=== PATIENT | male | born 1985 | race Caucasian/White ===

== ENCOUNTER 2017-12-06 19:18 | Emergency (ER) | payer OTHER ==
[2017-12-06 19:28] VITALS: BP 157/87
[2017-12-06] MEDS ORDERED: LIDOCAINE 2% 10 ML MDV SUBQ STA (20:16)
[2017-12-06] MEDS ORDERED: BACITRACIN OINT TOP STA (20:42)
--- NOTE | 2017-12-06 20:45 | ED Physician Documentation ---
PD HPI LOWER EXT INJURY - Stated complaint Stated Complaint: LT BIG TOE PX - Chief complaint Chief Complaint: Trauma Ext - History obtained from History obtained from: Patient - History of Present Illness PD HPI LOW EXT INJURY LOCATION: Left, Toe (great toe toenail) Type of injury: Blunt / blow Where injury occurred: Home Timing - onset: How many hours ago (1) Timing - duration: Hours (1) Timing - details: Abrupt onset Pain level max: 7 Pain level now: 3 Improved by: Rest Worsened by: Moving, Palpating Associated symptoms: No: Weakness, Numbness, Tingling, Swelling Contributing factors: No: Anticoagulated Recently seen: Not recently seen - Additional information Additional information: Patient stubbed his left great toe in his garage and avulsed his left toenail. Here to have the remainder of the toenail removed. Review of Systems Neurologic: denies: Focal weakness, Numbness PD PAST MEDICAL HISTORY - Past Medical History Past Medical History: No - Past Surgical History Past Surgical History: No - Present Medications Home Medications: Ambulatory Orders Medication Instructions Recorded Confirmed No Known Home Medications [No 12/06/17 12/06/17 Known Home Medications] - Allergies Allergies/Adverse Reactions: Allergies Allergy/AdvReac Type Severity Reaction Status Date / Time amoxicillin Allergy Rash Verified 12/06/17 19:28 Penicillins Allergy Hives Verified 12/06/17 19:29 PD ED PE NORMAL - Vitals Vital signs reviewed: Yes - General General: Alert and oriented X 3 - Derm Derm: Warm and dry - Extremities Extremities: Other (Left foot - Great toenail is approximately 90% avulsed. No active bleeding. No laceration. Neurovascularly intact) - Neuro Neuro: Alert and oriented X 3 Results - Vitals Vitals: Vital Signs - 24 hr 12/06/17 19:25 Temperature 36.5 C Heart Rate 96 Respiratory 15 Rate Blood Pressure 157/87 H O2 Saturation 97 Oxygen O2 Source Room air Procedures - General procedure General procedure: Left great toenail removal - 2% lidocaine was used as a digital block for the great toe. The toenail was then removed with straight forceps. Patient tolerated well. No bleeding. Bacitracin and Xeroform gauze were then applied. Neurovascularly intact. Patient refuses anything placed under the nail fold. Tolerated well PD MEDICAL DECISION MAKING - ED course Complexity details: considered differential, d/w patient ED course: Patient is a 32-year-old male with a left great toenail avulsion. This was removed in the emergency department. Tolerated well. Warnings of infection and instructions on wound care given at bedside. Patient counseled regarding signs and symptoms for which I believe and urgent re-evaluation would be necessary. Patient with good understanding of and agreement to plan and is comfortable going home at this time This document was made in part using voice recognition software. While efforts are made to proofread this document, sound alike and grammatical errors may occur. Departure - Departure Disposition: 01 Home, Self Care Clinical Impression: Avulsed toenail Qualifiers: Encounter type: initial encounter Qualified Code(s): S91.209A - Unspecified open wound of unspecified toe(s) with damage to nail, initial encounter Condition: Good Instructions: ED Avulsion Nail Complete Follow-Up: your,doctor in 1 week [Other] Comments: Keep the wound clean. Return for redness, swelling or drainage from the wound. Discharge Date/Time: 12/06/17 21:00
[2017-12-06] MEDS ORDERED: BACITRACIN OINT TOP ONE (20:52)
== END 2017-12-06 21:00 | disposition home or self-care (01) ==
LOC: ED 19:18
DX: S91.212A Laceration without foreign body of left great toe with damage to nail, initial encounter (principal); W22.09XA Striking against other stationary object, initial encounter; Y92.015 Private garage of single-family (private) house as the place of occurrence of the external cause
CPT/HCPCS: 11730; 99283; A9270

== ENCOUNTER 2018-02-06 12:03 | Emergency (ER) | payer OTHER ==
[2018-02-06 12:41] LABS: BILIRUBIN,URINE NEGATIVE (NEGATIVE); GLUCOSE, URINE (UA) NEGATIVE (NEGATIVE); KETONES,URINE (UA) NEGATIVE (NEGATIVE); LEUKOCYTE ESTERASE, URINE NEGATIVE (NEGATIVE); NITRITE,URINE NEGATIVE (NEGATIVE); OCCULT BLOOD,URINE LARGE (NEGATIVE); PROTEIN,URINE NEGATIVE (NEGATIVE); UROBILINOGEN,URINE 0.2 (NORMAL) E.U./dL (NORMAL)
[2018-02-06 12:52] LABS: CLARITY,URINE HAZY (CLEAR)
[2018-02-06 12:53] LABS: BACTERIA,URINE None Seen /HPF (None Seen); RBC,URINE TNTC /HPF (0-5); SQUAMOUS EPITHELIAL CELL,UR NONE SEEN (<= Few)
--- NOTE | 2018-02-06 12:56 | ED Physician Documentation ---
PD HPI ABD PAIN - Stated complaint Stated Complaint: AB PX - Chief complaint Chief Complaint: UTI - History obtained from History obtained from: Patient - History of Present Illness Timing - onset: Today Timing - duration: Hours Timing - details: Abrupt onset, Still present Quality: Sharp, Pain Location: Suprapubic Improved by: Other (nothing) Worsened by: Other (nothing) Associated symptoms: Hematuria. No: Fever, Nausea, Vomiting, Hematemesis, Diarrhea, Constipation, Dysuria, Loss of appetite Similar symptoms before: Has not had sx before Recently seen: Not recently seen - Additional information Additional information: Recently healthy 33-year-old male noted today some lower abdominal cramping and dark colored urine. He drink extra fluids noted the continued dark color of his urine and he is being calm concerned that this may be blood in his urine. He denies any excessive physical activity in the last 2 days and has not been ill. He has not had this happen to him previously and he denies any radiation of the pain into the flank. Review of Systems Constitutional: denies: Fever Eyes: denies: Decreased vision Ears: denies: Ear pain Nose: denies: Congestion Throat: denies: Sore throat Cardiac: denies: Chest pain / pressure, Palpitations Respiratory: denies: Dyspnea, Cough GI: reports: Abdominal Pain. denies: Nausea, Vomiting, Constipation, Diarrhea : reports: Hematuria. denies: Dysuria, Frequency Skin: denies: Rash Musculoskeletal: denies: Neck pain, Back pain, Extremity pain PD PAST MEDICAL HISTORY - Past Medical History Past Medical History: No - Past Surgical History Past Surgical History: No - Present Medications Home Medications: Ambulatory Orders Medication Instructions Recorded Confirmed Tramadol HCl 50 - 100 mg PO Q6HR PRN #15 tablet 02/06/18 - Allergies Allergies/Adverse Reactions: Allergies Allergy/AdvReac Type Severity Reaction Status Date / Time amoxicillin Allergy Rash Verified 12/06/17 19:28 Penicillins Allergy Hives Verified 12/06/17 19:29 - Social History Does the pt smoke?: No Smoking Status: Never smoker Does the pt drink ETOH?: No Does the pt have substance abuse?: No - Immunizations Immunizations are current?: Yes - POLST Patient has POLST: No PD ED PE NORMAL - Vitals Vital signs reviewed: Yes (hypertensive ) - General General: Alert and oriented X 3, No acute distress, Well developed/nourished - HEENT HEENT: Atraumatic, PERRL, EOMI - Neck Neck: Supple, no meningeal sign - Cardiac Cardiac: RRR, No murmur - Respiratory Respiratory: No respiratory distress, Clear bilaterally - Abdomen Abdomen: Soft, Non tender, Other (palpation of the RLQ confrims the location of the pain but does not make pain worse. ) - Back Back: No CVA TTP, No spinal TTP - Derm Derm: Normal color, Warm and dry, No rash - Extremities Extremities: No deformity, No edema - Neuro Neuro: Alert and oriented X 3, No motor deficit, No sensory deficit, Normal speech Eye Opening: Spontaneous Motor: Obeys Commands Verbal: Oriented GCS Score: 15 - Psych Psych: Normal mood, Normal affect Results - Vitals Vitals: Vital Signs - 24 hr 02/06/18 12:18 Temperature 36.5 C Heart Rate 86 Respiratory 16 Rate Blood Pressure 143/101 H O2 Saturation 100 Oxygen O2 Source Room air - Labs Labs: Laboratory Tests 02/06/18 12:37 Urine Color ORANGE Urine Clarity HAZY Urine pH 6.0 Ur Specific [place] <=1.005 Urine Protein NEGATIVE Urine Glucose (UA) NEGATIVE Urine Ketones NEGATIVE Urine Occult Blood LARGE H Urine Nitrite NEGATIVE Urine Bilirubin NEGATIVE Urine Urobilinogen 0.2 (NORMAL) Ur Leukocyte Esterase NEGATIVE Urine RBC TNTC H Urine WBC 6-10 H Ur Squamous Epith Cells NONE SEEN Urine Bacteria None Seen Ur Microscopic Review INDICATED Urine Culture Comments INDICATED Procedures - Bedside sono Bedside sono by EMP: With use of bedside ultrasound the right kidney is imaged and it is sonographically nontender and there is evidence of mild hydronephrosis. Examination of the left kidney is without evidence of hydronephrosis and it is also sonographically nontender. PD MEDICAL DECISION MAKING - ED course Complexity details: reviewed results, re-evaluated patient, considered differential, d/w patient ED course: 33-year-old male with dark-colored urine and lower abdominal pain today appears to have a kidney stone by history and bedside ultrasound exam. I discussed with the patient the indirect evidence for the kidney stone and use of CT scan for confirmation. I discussed with the patient the usual course of pain associated with the kidney stone and he would like to wait the next week to decide whether a scan is indicated. I have encouraged the patient. - Sepsis Event Vital Signs: Vital Signs - 24 hr 02/06/18 12:18 Temperature 36.5 C Heart Rate 86 Respiratory 16 Rate Blood Pressure 143/101 H O2 Saturation 100 Oxygen O2 Source Room air Departure - Departure Disposition: 01 Home, Self Care Clinical Impression: Ureterolithiasis Condition: Stable Instructions: ED Stone Renal W Colic Follow-Up: BECKA MEDRANO DO [Primary Care Provider] - Prescriptions: Tramadol HCl 50 - 100 mg PO Q6HR PRN #15 tablet PRN Reason: Pain Comments: Today we have found blood in the urine and evidence of blockage of the right ureter on ultrasound. These findings are consistent with a kidney stone. The course is expected to be benign and we expect the stone to pass in the next 2 days. If you have worsening or intolerance of the pain or the pain lasts longer than 5 days return to the ED for scanning. If you are not able to eat or develop a fever return here as these are not symptoms of a kidney stone and may indicate a more urgent problem like appendicitis.
[2018-02-06 13:24] VITALS: BP 135/88
== END 2018-02-06 13:24 | disposition home or self-care (01) ==
LOC: ED 12:03
DX: N20.1 Calculus of ureter (principal)
CPT/HCPCS: 81001; 81003; 87086; 99283

== ENCOUNTER 2018-02-08 16:11 | Emergency (ER) | payer OTHER ==
[2018-02-08] MEDS ORDERED: SODIUM CHLORIDE 0.9% 1,000 ML IV ONE (16:45)
[2018-02-08] MEDS ORDERED: KETOROLAC 60 MG/2 ML VIAL IVP STA (16:45)
--- NOTE | 2018-02-08 16:46 | ED Physician Documentation ---
PD HPI ABD PAIN - Stated complaint Stated Complaint: MALE /BACK PX - Chief complaint Chief Complaint: Abd Pain - History obtained from History obtained from: Patient - History of Present Illness Timing - onset: Enter time (1000), Today Timing - duration: Hours Timing - details: Abrupt onset, Still present Pain level max: 6 Pain level now: 6 Quality: Cramping, Sharp, Pain Location: RUQ Radiation: Right flank Improved by: Other (nothing) Worsened by: Other (nothing) Associated symptoms: Hematuria. No: Fever, Nausea, Vomiting, Hematemesis, Diarrhea, Constipation, Melena, Hematochezia, Dysuria, Chest pain Similar symptoms before: Diagnosis (kidney stone) Recently seen: Emergency Dept - Additional information Additional information: 33-year-old male was seen here in the department 2 days ago with a kidney stone on the right side diagnosed with bedside ultrasound showing hydronephrosis. At that time we decided not to do CT examination of the abdomen pelvis and the patient had decent pain relief with the use of Toradol. Today he was at home and he had been comfortable throughout the night and he began to develop some significant pain in the right side and sensation that he needed to void. Pain is become intolerable at a 6 out of 10 and he is come to the emergency department now for evaluation. Review of Systems Constitutional: denies: Fever Eyes: denies: Decreased vision Ears: denies: Ear pain Nose: denies: Congestion Throat: denies: Dental pain / toothache, Sore throat Cardiac: denies: Chest pain / pressure, Palpitations Respiratory: denies: Dyspnea, Cough GI: reports: Abdominal Pain, Nausea. denies: Vomiting, Constipation, Diarrhea : reports: Unable to Void, Hematuria. denies: Dysuria, Frequency Skin: denies: Rash Musculoskeletal: reports: Back pain. denies: Neck pain, Extremity pain PD PAST MEDICAL HISTORY - Past Surgical History Past Surgical History: No - Present Medications Home Medications: Ambulatory Orders Medication Instructions Recorded Confirmed Tramadol HCl 50 - 100 mg PO Q6HR PRN #15 tablet 02/06/18 - Allergies Allergies/Adverse Reactions: Allergies Allergy/AdvReac Type Severity Reaction Status Date / Time amoxicillin Allergy Rash Verified 12/06/17 19:28 Penicillins Allergy Hives Verified 12/06/17 19:29 - Social History Does the pt smoke?: No Smoking Status: Never smoker Does the pt drink ETOH?: No Does the pt have substance abuse?: No - Immunizations Immunizations are current?: Yes - POLST Patient has POLST: No PD ED PE NORMAL - Vitals Vital signs reviewed: Yes (hypertensive ) - General General: Alert and oriented X 3, No acute distress, Well developed/nourished - HEENT HEENT: Atraumatic, PERRL, EOMI - Neck Neck: Supple, no meningeal sign - Cardiac Cardiac: RRR, No murmur - Respiratory Respiratory: No respiratory distress, Clear bilaterally - Abdomen Abdomen: Soft, Non tender - Back Back: No CVA TTP, No spinal TTP - Derm Derm: Normal color, Warm and dry, No rash - Extremities Extremities: No deformity, No edema - Neuro Neuro: Alert and oriented X 3, No motor deficit, No sensory deficit, Normal speech Eye Opening: Spontaneous Motor: Obeys Commands Verbal: Oriented GCS Score: 15 - Psych Psych: Normal mood, Normal affect Results - Vitals Vitals: Vital Signs - 24 hr 02/08/18 02/08/18 16:14 17:32 Temperature 36.0 C L Heart Rate 92 78 Respiratory 18 18 Rate Blood Pressure 182/100 H 150/94 H O2 Saturation 97 97 Oxygen O2 Source Room air - Labs Labs: Laboratory Tests 02/08/18 16:20 Urine Color YELLOW Urine Clarity CLEAR Urine pH 6.0 Ur Specific [place] <=1.005 Urine Protein NEGATIVE Urine Glucose (UA) NEGATIVE Urine Ketones NEGATIVE Urine Occult Blood SMALL H Urine Nitrite NEGATIVE Urine Bilirubin NEGATIVE Urine Urobilinogen 0.2 (NORMAL) Ur Leukocyte Esterase NEGATIVE Urine RBC 0-5 Urine WBC 0-3 Ur Squamous Epith Cells NONE SEEN Urine Bacteria None Seen Ur Microscopic Review INDICATED Urine Culture Comments NOT INDICATED - Rads (name of study) CT abd/pel without Radiology: Prelim report reviewed (Impression: 1. Obstructing ureteral lithiasis at the right ureterovesicular junction results in mild hydronephrosis 2 nonobstructing left nephrolithiasis 3 hepatic steatosis.), EMP read indepedently, See rad report Procedures - Bedside sono Bedside sono by EMP: With use of bedside ultrasound the left kidney is imaged there is no evidence of hydronephrosis the right kidney is imaged and again today there is evidence of hydronephrosis. Neither kidney is sonographically tender. The bladder is imaged it is not distended and there are no urinary jets from either side. PD MEDICAL DECISION MAKING - ED course Complexity details: reviewed results, re-evaluated patient, considered differential, d/w patient ED course: 33-year-old male with a history of kidney stone on the right side has a shift in his symptoms today and he is come back to the emergency department for reevaluation. Today CT scan of the abdomen and pelvis shows the stone is at the ureterovesicular junction with mild hydronephrosis. He does have several other stones in the left kidney. I discussed with the patient the natural history of the course of kidney stone and he has excellent pain relief with the use of intravenous Toradol. - Sepsis Event Vital Signs: Vital Signs - 24 hr 02/08/18 02/08/18 16:14 17:32 Temperature 36.0 C L Heart Rate 92 78 Respiratory 18 18 Rate Blood Pressure 182/100 H 150/94 H O2 Saturation 97 97 Oxygen O2 Source Room air Departure - Departure Disposition: 01 Home, Self Care Clinical Impression: Ureterolithiasis Condition: Stable Instructions: ED Stone Renal W Colic Follow-Up: BECKA MEDRANO DO [Primary Care Provider] -
[2018-02-08 16:49] LABS: BILIRUBIN,URINE NEGATIVE (NEGATIVE); GLUCOSE, URINE (UA) NEGATIVE (NEGATIVE); KETONES,URINE (UA) NEGATIVE (NEGATIVE); LEUKOCYTE ESTERASE, URINE NEGATIVE (NEGATIVE); NITRITE,URINE NEGATIVE (NEGATIVE); OCCULT BLOOD,URINE SMALL (NEGATIVE); PROTEIN,URINE NEGATIVE (NEGATIVE); UROBILINOGEN,URINE 0.2 (NORMAL) E.U./dL (NORMAL)
[2018-02-08 16:57] LABS: CLARITY,URINE CLEAR (CLEAR)
[2018-02-08 17:03] LABS: BACTERIA,URINE None Seen /HPF (None Seen); RBC,URINE 0-5 /HPF (0-5); SQUAMOUS EPITHELIAL CELL,UR NONE SEEN (<= Few)
--- NOTE | 2018-02-08 17:23 | CT Report ---
Procedure Date: 02/08/2018 Accession Number: [id number] / [id number] Procedure: CT - Abdomen/Pelvis W/O CPT Code: FULL RESULT: EXAM: CT ABDOMEN AND PELVIS EXAM DATE: 02/08/2018 05:12 PM. CLINICAL HISTORY: Right flank pain hydro on bedside. COMPARISONS: None. TECHNIQUE: Routine helical CT imaging was performed through the abdomen and pelvis. IV contrast: None. Enteric contrast: No. Reconstructions: Coronal and sagittal. In accordance with CT protocol optimization, one or more of the following dose reduction techniques were utilized for this exam: automated exposure control, adjustment of mA and/or KV based on patient size, or use of iterative reconstructive technique. FINDINGS: Lung Bases: Few subpleural solid pulmonary nodules in the left lower lobe, largest measuring 3 mm. Liver: Hepatic steatosis. Gallbladder/Bile Ducts: Unremarkable. Spleen: Normal. Pancreas: Normal. Adrenal Glands: Normal. Right kidney: Mild hydronephrosis. Mild hydroureter. Obstructing ureterolithiasis at the ureterovesicular junction, series 3, axial image 131, measures 3 x 3 x 3 mm. Left kidney: Multiple nonobstructing nephrolithiasis, largest in the superior pole, series 3, axial image 45, measuring 4 mm. No hydronephrosis. No ureterolithiasis Peritoneal Cavity/Bowel: Normal. No free fluid, free air or adenopathy. No masses or acute inflammatory process. The appendix is well visualized and normal. Pelvic Organs: Bladder is collapsed. No bladder calculus. Prostate is normal in size. Vasculature: Circumaortic left renal vein. Bones: No significant abnormality. Other: None. IMPRESSION: 1. Obstructing ureterolithiasis at the right ureterovesicular junction results in mild hydronephrosis 2. Nonobstructing left nephrolithiasis 3. Hepatic steatosis RADIA
[2018-02-08 17:32] VITALS: BP 150/94
== END 2018-02-08 18:15 | disposition home or self-care (01) ==
LOC: ED 16:11
DX: N20.1 Calculus of ureter (principal)
CPT/HCPCS: 74176; 81001; 81003; 87086; 96361; 96374; 99283

== ENCOUNTER 2018-04-23 13:13 | Emergency (ER) | payer OTHER ==
[2018-04-23] MEDS ORDERED: KETOROLAC 60 MG/2 ML VIAL IVP STA (13:23)
[2018-04-23] MEDS ORDERED: ONDANSETRON 4 MG/2 ML VIAL IVP STA (13:23)
[2018-04-23] MEDS ORDERED: HYDROmorphone 1 MG/ML CARPUJECT IVP STA (13:23)
[2018-04-23 13:38] LABS: BASOPHILS % (AUTO) 0.5 %; EOSINOPHILS # (AUTO) 0.1 10^3/uL (0.0-0.7); EOSINOPHILS % (AUTO) 0.9 %; HGB - HEMOGLOBIN 15.5 g/dL (14.0-18.0); LYMPHOCYTES # (AUTO) 1.2 10^3/uL (1.5-3.5); LYMPHOCYTES % (AUTO) 12.8 %; MEAN CORPUSCULAR HEMOGLOBIN 33.8 pg (27.0-31.0); MEAN CORPUSCULAR HGB CONC 35.8 g/dL (32.0-36.0); MEAN CORPUSCULAR VOLUME 94.4 fL (80.0-94.0); MEAN PLATELET VOLUME 8.9 fL (7.4-11.4); MONOCYTES # (AUTO) 0.8 10^3/uL (0.0-1.0); MONOCYTES % (AUTO) 9.2 %; NEUTROPHILS % (AUTO) 76.6 %; PLT - PLATELET COUNT 182 10^3/uL (130-450); RED BLOOD COUNT 4.57 10^6/uL (4.70-6.10); RED CELL DISTRIBUTION WIDTH 11.9 % (12.0-15.0); WHITE BLOOD COUNT 9.2 x10^3/uL (4.8-10.8)
--- NOTE | 2018-04-23 13:40 | ED Physician Documentation ---
PD HPI MALE - Stated complaint Stated Complaint: SIDE PX - Chief complaint Chief Complaint: Back Pain - History obtained from History obtained from: Patient - History of Present Illness Timing - onset: Today (He's been dealing with renal colic pain for > 2 months; Known obstructing stones on CT here February 08. Has a referral for intervention next week, has already seen the urologist but the pain was worse today. No hematuria.) Review of Systems Constitutional: denies: Fever, Chills GI: reports: Nausea. denies: Abdominal Pain : denies: Dysuria, Frequency PD PAST MEDICAL HISTORY - Past Surgical History Past Surgical History: No - Present Medications Home Medications: Ambulatory Orders Medication Instructions Recorded Confirmed RX: Tramadol HCl 50 - 100 mg PO Q6HR PRN #15 tablet 02/06/18 Oxycodone HCl/Acetaminophen 1 - 2 each PO Q6H PRN #20 tablet 04/23/18 [Percocet 5-325 mg Tablet] - Allergies Allergies/Adverse Reactions: Allergies Allergy/AdvReac Type Severity Reaction Status Date / Time amoxicillin Allergy Rash Verified 04/23/18 13:21 Penicillins Allergy Hives Verified 04/23/18 13:21 - Social History Does the pt smoke?: No Smoking Status: Never smoker Does the pt drink ETOH?: No Does the pt have substance abuse?: No - Immunizations Immunizations are current?: Yes - POLST Patient has POLST: No PD ED PE NORMAL - Vitals Vital signs reviewed: Yes - General General: Alert and oriented X 3, No acute distress - Abdomen Abdomen: Normal bowel sounds, Soft, Non tender - Back Back: Other (Mild bilateral flank tenderness, left greater than right) - Extremities Extremities: No edema - Neuro Neuro: Alert and oriented X 3, Normal speech Results - Vitals Vitals: Vital Signs - 24 hr 04/23/18 04/23/18 13:19 14:55 Temperature 36.7 C 36.8 C Heart Rate 109 H 90 Respiratory 18 18 Rate Blood Pressure 148/92 H 138/79 H O2 Saturation 96 96 Oxygen O2 Source Room air - Labs Labs: Laboratory Tests 04/23/18 04/23/18 04/23/18 13:30 13:30 14:20 WBC 9.2 RBC 4.57 L Hgb 15.5 Hct 43.1 MCV 94.4 H MCH 33.8 H MCHC 35.8 RDW 11.9 L Plt Count 182 MPV 8.9 Neut # (Auto) 7.0 H Lymph # (Auto) 1.2 L [place] # (Auto) 0.8 Eos # (Auto) 0.1 Baso # (Auto) 0.0 Absolute Nucleated RBC 0.00 Nucleated RBC % 0.1 Sodium 134 L Potassium 3.9 Chloride 101 Carbon Dioxide 24 Anion Gap 9.0 BUN 18 Creatinine 1.2 Estimated GFR (MDRD) 70 L Glucose 98 Calcium 9.4 Total Bilirubin 0.8 AST 22 ALT 30 Alkaline Phosphatase 59 Total Protein 8.2 Albumin 4.7 Globulin 3.5 Albumin/Globulin Ratio 1.3 Lipase 27 Urine Color LT. YELLOW Urine Clarity CLEAR Urine pH 5.[address] 1.010 Urine Protein NEGATIVE Urine Glucose (UA) NEGATIVE Urine Ketones NEGATIVE Urine Occult Blood NEGATIVE Urine Nitrite NEGATIVE Urine Bilirubin NEGATIVE Urine Urobilinogen 0.2 (NORMAL) Ur Leukocyte Esterase NEGATIVE Ur Microscopic Review NOT INDICATED Urine Culture Comments NOT INDICATED PD MEDICAL DECISION MAKING - ED course ED course: 33-year-old gentleman with flank pain, the diagnosis of renal colic is not in doubt given previous workups. Feeling much better after meds here. - Sepsis Event Vital Signs: Vital Signs - 24 hr 04/23/18 04/23/18 13:19 14:55 Temperature 36.7 C 36.8 C Heart Rate 109 H 90 Respiratory 18 18 Rate Blood Pressure 148/92 H 138/79 H O2 Saturation 96 96 Oxygen O2 Source Room air Departure - Departure Disposition: 01 Home, Self Care Clinical Impression: Ureterolithiasis Condition: Good Record reviewed to determine appropriate education?: Yes Instructions: ED Stone Renal W Colic Prescriptions: Oxycodone HCl/Acetaminophen [Percocet 5-325 mg Tablet] 1 - 2 each PO Q6H PRN #20 tablet PRN Reason: pain Comments: Follow-up with urologist as scheduled for definitive treatment of your kidney stones. Return if worse. Do not drink or drive while taking narcotic pain medication. Note that many narcotic pain relievers also contain Tylenol/acetaminophen. Please ensure that your total dose of acetaminophen from all sources does not exceed 3 g (3000 mg) per day. You may get constipated while on this medication. Take a stool softener such as Colace twice a day while you are on it. Also add an [id number] laxative such as senna or MiraLAX on any day that you do not have a bowel movement. If you received a narcotic pain medication or sedative while in the emergency department, do not drive for the next 24 hours. Your blood pressure was elevated today on check into the emergency department. This does not mean that you have hypertension, it is a common phenomenon to come to the emergency department and have elevated blood pressure. I recommend that you see your primary care physician within the week to have it rechecked when you are feeling better. Forms: Activity restrictions Discharge Date/Time: 04/23/18 14:56
[2018-04-23 13:53] LABS: ALBUMIN 4.7 g/dL (3.2-5.5); ALBUMIN/GLOBULIN RATIO 1.3 (1.0-2.2); BILIRUBIN,TOTAL 0.8 mg/dL (0.2-1.0); CALCIUM 9.4 mg/dL (8.5-10.3); CREATININE 1.2 mg/dL (0.6-1.2); TOTAL PROTEIN 8.2 g/dL (6.7-8.2)
[2018-04-23 14:40] LABS: BILIRUBIN,URINE NEGATIVE (NEGATIVE); GLUCOSE, URINE (UA) NEGATIVE (NEGATIVE); KETONES,URINE (UA) NEGATIVE (NEGATIVE); LEUKOCYTE ESTERASE, URINE NEGATIVE (NEGATIVE); NITRITE,URINE NEGATIVE (NEGATIVE); OCCULT BLOOD,URINE NEGATIVE (NEGATIVE); PH,URINE 5.5 PH (5.0-7.5); PROTEIN,URINE NEGATIVE (NEGATIVE); UROBILINOGEN,URINE 0.2 (NORMAL) E.U./dL (NORMAL)
[2018-04-23 14:45] LABS: CLARITY,URINE CLEAR (CLEAR)
[2018-04-23 14:56] VITALS: BP 138/79
== END 2018-04-23 14:56 | disposition home or self-care (01) ==
LOC: ED 13:13
DX: N20.1 Calculus of ureter (principal); R03.0 Elevated blood-pressure reading, without diagnosis of hypertension
CPT/HCPCS: 36415; 80053; 81003; 83690; 85025; 96374; 99283; J1170; 81001; 87086